=== PATIENT | male | born 1985 | race Two or more races ===

== ENCOUNTER 2024-12-27 20:04 | Emergency (ER) | payer MEDICAID ==
[~2024-12-27] VITALS: Ht 170.2 cm; Wt 74.7 kg
[2024-12-27 20:13] VITALS: BP 128/81; PULSE 93; O2SAT 98
--- NOTE | 2024-12-27 20:43 | RADIOLOGY REPORT ---
CLINICAL INDICATION: GLF RIGHT TECHNIQUE: 4 radiographic views of the right shoulder were obtained. Comparison: None FINDINGS/IMPRESSION: There is acute mildly displaced fracture of the distal clavicle. No shoulder dislocation. No acute fracture of the proximal humerus. 5 mm sclerotic focus of the humeral head which may represent a small bone island with a blastic lesion not excluded.
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
[2024-12-27 21:57] VITALS: RESP 16
[2024-12-27] MEDS: ketorolac trometh 15mg/ml vial 15 MG/ML ML IM ONE (21:57)
[2024-12-27] MEDS ORDERED: IBUP-1986 PO (22:07)
[2024-12-27 22:20] VITALS: TEMP 98.9
== END 2024-12-27 22:23 | disposition home or self-care (01) ==
LOC: ER 20:05
DX: S42.031A Displaced fracture of lateral end of right clavicle, initial encounter for closed fracture (principal); W18.30XA Fall on same level, unspecified, initial encounter; Y93.89 Activity, other specified; Y92.89 Other specified places as the place of occurrence of the external cause; Y99.8 Other external cause status
CPT/HCPCS: 29105; 73030; 96372; 99283; J1885; A4565